=== PATIENT | male | born 1955 | race Two or more races ===

== ENCOUNTER 2024-01-03 09:02 | Outpatient (CLI) | payer OTHER ==
[~2024-01-03 09:02] MED LIST: CATAPRES0.3 MG; COZAAR25 MG; GLIPIZIDE XL2.5 MG; LOPRESSOR25 MG; ZOCOR20 MG
[2024-01-03 10:34] LABS: HEMATOCRIT 41.7 % (39.0-48.0); HEMOGLOBIN 13.8 g/dL (13-16.00); MEAN CELL VOLUME 82.4 fL (80.0-100.00); MEAN CORPUSCULAR HEMOGLOBIN 27.2 pg (27.00-32.0); RED BLOOD COUNT 5.05 M/uL (4.00-6.00); RED CELL DISTRIBUTION WIDTH 15.7 % (11.5-14.5)
[2024-01-03 10:52] LABS: PLATELET COUNT 110 K/uL (150-450)
[2024-01-03 10:59] LABS: INR 1.07; PARTIAL THROMBOPLASTIN TIME 27.6 SECONDS (22.0-34.0); PROTHROMBIN TIME 11.6 SECONDS (9.0-11.5)
[2024-01-03 11:10] LABS: % SATURACION 10.3 % (20-50); ALBUMIN 4.2 gm/dL (3.4-5.0); BILIRUBIN TOTAL 0.99 mg/dL (0.3-1.2); CALCIUM 9.2 mg/dL (8.5-10.1); CREATININE SERUM 1.28 mg/dL (0.70-1.30); FERRITIN 23.5 NG/ML (26-388); GFR 55.56; GLOBULINA 3.4 G/DL (2.4-3.5); POTASSIUM 4.13 mEq/L (3.5-5.1); TOTAL PROTEIN 7.6 gm/dL (6.4-8.2)
[2024-01-03 11:25] LABS: FOLIC ACID 15.46 ng/ml (4.78-20)
[2024-01-04 10:07] LABS: MANUAL PLATELET COUNT 198
[2024-01-04 10:08] LABS: PLATELET ESTIMATE NORMAL (NORMAL)
== END 2024-01-03 09:03 | disposition home or self-care (01) ==
LOC: LAB 09:02
PROVIDERS: ATTEND Internal Medicine Hematology & Oncology
DX: C18.9 Malignant neoplasm of colon, unspecified (principal); I10 Essential (primary) hypertension; E11.9 Type 2 diabetes mellitus without complications; G47.33 Obstructive sleep apnea (adult) (pediatric); R79.9 Abnormal finding of blood chemistry, unspecified; K76.89 Other specified diseases of liver; R74.02 Elevation of levels of lactic acid dehydrogenase [LDH]; D50.8 Other iron deficiency anemias; D68.8 Other specified coagulation defects; D69.1 Qualitative platelet defects

== ENCOUNTER 2024-05-09 11:15 | Inpatient (IN) | payer OTHER ==
[~2024-05-09] VITALS: Ht 162.6 cm; Wt 115.2 kg
[2024-05-16] MEDS ORDERED: METOLAZONE5 MG (11:46)
[2024-05-16] MEDS ORDERED: METOPROLOL SUC100 MG (11:46)
[2024-05-16] MEDS ORDERED: GABAPENTIN600 MG (11:46)
[2024-05-16] MEDS ORDERED: FLUTICASONE PRO12 GM (11:46)
[2024-05-16] MEDS ORDERED: AMLODIPINE BESYL5 MG (11:46)
[2024-05-16] MEDS ORDERED: DOXAZOSIN MESYLA2 MG (11:46)
[2024-05-16] MEDS ORDERED: CILOSTAZOL50 MG (11:46)
[2024-05-16] MEDS ORDERED: ENALAPRILAT DIHYDRATE 1.25 MG/ML VIAL IV ONE ×3 (11:53→19:16)
[2024-05-16] MEDS ORDERED: CHLORHEXIDINE GLUCONATE 120 ML BOTTLE TOP ONE (13:36)
[2024-05-16] MEDS ORDERED: MORPHINE SULFATE 4 MG/ML CARTRIDGE IV PRN (13:45)
[2024-05-16] MEDS ORDERED: ONDANSETRON HCL 2 MG/ML VIAL IV PRN (13:45)
[2024-05-16] MEDS ORDERED: OxyCODONE HCL 5 MG TABLET (ROXICODONE) PO PRN (13:45)
[2024-05-16] MEDS ORDERED: DEXTROSE 50 % IN WATER 0.5 G/ML DISP.SYRIN IV PRN (13:45)
[2024-05-16] MEDS ORDERED: 0.9 % SODIUM CHLORIDE 1,000 ML IV SCH (13:45)
[2024-05-16] MEDS ORDERED: CEFTRIAXONE SODIUM 2,000 MG VIAL ONE (13:49)
[2024-05-16] MEDS ORDERED: ACETAMINOPHEN 500 MG GEL..CAP PO SCH (14:00)
[2024-05-16] MEDS ORDERED: BUPIVACAINE HCL 30 ML VIAL IJ ONE (14:45)
[2024-05-16] MEDS ORDERED: LIDOCAINE HCL 1%/EPINEPHRINE 20ML VIAL IJ ONE (14:45)
[2024-05-16] MEDS ORDERED: METRONIDAZOLE/SODIUM CHLORIDE 5 MG/ML ML IV ONE (14:45)
[2024-05-16] MEDS ORDERED: POVIDONE-IODINE 118 ML BOTT TOP ONE (15:24)
[2024-05-16] MEDS ORDERED: SUGAMMADEX SODIUM 200 MG/2 ML VIAL IV ONE (15:54)
[2024-05-16] MEDS ORDERED: METRONIDAZOLE/SODIUM CHLORIDE 500 MG/100 ML PIGGYBACK IV SCH (17:00)
[2024-05-16] MEDS ORDERED: GABAPENTIN 300 MG CAPSULE PO SCH (17:00)
[2024-05-16] MEDS ORDERED: POLYETHYLENE GLYCOL 3350 17 GM BLIST.PACK PO SCH (17:00)
[2024-05-16] MEDS ORDERED: HYOSCYAMINE SULFATE 0.125 MG TAB.SUBL SL SCH (17:00)
[2024-05-16] MEDS ORDERED: METRONIDAZOLE/SODIUM CHLORIDE 500 MG/100 ML PIGGYBACK IV ONE (17:18)
[2024-05-16] MEDS ORDERED: MORPHINE SULFATE 4 MG/ML VIAL IV ONE ×2 (17:40→18:10)
[2024-05-16] MEDS ORDERED: LEVALBUTEROL HCL 0.63 MG/3 ML SOLUTION IH SCH (18:53)
[2024-05-16] MEDS ORDERED: INSULIN LISPRO 1,000 UNIT/10 ML UNITS SUBCUTANEO PRN (19:00)
[2024-05-16] MEDS ORDERED: ENALAPRILAT DIHYDRATE 1.25 MG/ML VIAL IV PRN (19:00)
[2024-05-16] MEDS ORDERED: DEXTROSE 50 % IN WATER 0.5 G/ML VIAL IV PRN (19:00)
[2024-05-16] MEDS ORDERED: ENALAPRILAT DIHYDRATE 2.5 MG/2 ML VIAL IV ONE (19:20)
[2024-05-16] MEDS ORDERED: LEVALBUTEROL HCL 0.63 MG/3 ML SOLUTION IH ONE (19:22)
[2024-05-16] MEDS ORDERED: hydrALAZINE HCL 20 MG VIAL ONE (19:46)
[2024-05-16] MEDS ORDERED: NITROGLYCERIN IN 5 % DEXTROSE 50 MG/250 ML BOTTLE IV ONE (19:47)
[2024-05-16] MEDS ORDERED: DOXAZOSIN MESYLATE 2 MG TABLET PO SCH (21:00)
[2024-05-16] MEDS ORDERED: MONTELUKAST SODIUM 10 MG TABLET PO SCH (21:00)
[2024-05-16] MEDS ORDERED: FAMOTIDINE/PF 20 MG/2 ML VIAL IV PUSH SCH (21:00)
[2024-05-16] MEDS ORDERED: CELECOXIB 200 MG CAPSULE PO SCH (21:00)
[2024-05-16] MEDS ORDERED: CLONIDINE HCL 0.1 MG TABLET PO SCH (21:00)
[2024-05-16 21:06] LABS: ABG PH 7.372 (7.35-7.45); ABG PO2 114.9 mmHg (80-100); ABG pCO2 53.8 mmHg (35-45); BASE EXCESS 3.9 mmol/l; BICARBONATE 30.5 mmol/l (23-25); SaO2 98.4 %; Tco2 32.2 mmol/l; allen test SATISFACTORY; puncture site RADIAL LEFT
[2024-05-16 21:07] LABS: o2 50 %
[2024-05-16] MEDS ORDERED: FAMOTIDINE/PF 20 MG/2 ML VIAL ONE (21:08)
[2024-05-16 21:19] LABS: HEMATOCRIT 39.8 % (39.0-48.0); HEMOGLOBIN 12.9 g/dL (13-16.00); MEAN CELL VOLUME 80.8 fL (80.0-100.00); MEAN CORPUSCULAR HEMOGLOBIN 26.2 pg (27.00-32.0); MEAN CORPUSCULAR HGB CONC 32.5 g/dl (32.0-36.0); PLATELET COUNT 143 K/uL (150-450); RED BLOOD COUNT 4.93 M/uL (4.00-6.00); RED CELL DISTRIBUTION WIDTH 16.4 % (11.5-14.5)
[2024-05-16 21:44] LABS: ALBUMIN 3.7 gm/dL (3.4-5.0); CREATININE SERUM 1.21 mg/dL (0.70-1.30); GFR 59.28; MAGNESIUM 1.7 mg/dL (1.8-2.4); PHOSPHOROUS 4.3 mg/dL (2.5-4.9); POTASSIUM 4.28 mEq/L (3.5-5.1)
[2024-05-17 00:39] VITALS: BP 149/75; O2SAT 95
[2024-05-17 06:47] LABS: HEMATOCRIT 38.5 % (39.0-48.0); MEAN CELL VOLUME 79.9 fL (80.0-100.00); MEAN CORPUSCULAR HEMOGLOBIN 26.9 pg (27.00-32.0); MEAN CORPUSCULAR HGB CONC 33.7 g/dl (32.0-36.0); PLATELET COUNT 153 K/uL (150-450); RED BLOOD COUNT 4.82 M/uL (4.00-6.00); RED CELL DISTRIBUTION WIDTH 16.4 % (11.5-14.5)
[2024-05-17 07:26] LABS: ALBUMIN 3.6 gm/dL (3.4-5.0); CREATININE SERUM 1.13 mg/dL (0.70-1.30); GFR 64.15; PHOSPHOROUS 3.8 mg/dL (2.5-4.9)
[2024-05-17 07:31] LABS: MAGNESIUM 1.8 mg/dL (1.8-2.4); POTASSIUM 4.61 mEq/L (3.5-5.1)
[2024-05-17 08:00] VITALS: BP 192/82; O2SAT 93
[2024-05-17] MEDS ORDERED: METOPROLOL SUCCINATE 100 MG TAB.SR.24H PO SCH (09:00)
[2024-05-17] MEDS ORDERED: LOSARTAN POTASSIUM 100 MG TABLET PO SCH (09:00)
[2024-05-17 16:31] VITALS: BP 180/100
[2024-05-17] MEDS ORDERED: SIMVASTATIN 20 MG TABLET PO SCH (17:00)
[2024-05-17] MEDS ORDERED: ENOXAPARIN SODIUM 40 MG/0.4 ML SYRINGE SUBCUTANEO SCH (17:00)
[2024-05-17 19:35] VITALS: BP 111/79
[2024-05-17 21:30] LABS: HEMATOCRIT 37.5 % (39.0-48.0); HEMOGLOBIN 12.6 g/dL (13-16.00); MEAN CORPUSCULAR HEMOGLOBIN 29.2 pg (27.00-32.0); MEAN CORPUSCULAR HGB CONC 33.6 g/dl (32.0-36.0); PLATELET COUNT 276 K/uL (150-450); RED BLOOD COUNT 4.31 M/uL (4.00-6.00); RED CELL DISTRIBUTION WIDTH 17.3 % (11.5-14.5)
[2024-05-18 01:00] VITALS: BP 143/68; O2SAT 97
[2024-05-18] MEDS ORDERED: ENOXAPARIN SODIUM 40 MG/0.4 ML SYRINGE SUBCUTANEO SCH (09:00)
[2024-05-18] MEDS ORDERED: INSULIN LISPRO 1,000 UNIT/10 ML UNITS SUBCUTANEO PRN (10:45)
[2024-05-18] MEDS ORDERED: DEXTROSE 50 % IN WATER 0.5 G/ML DISP.SYRIN IV PRN (10:45)
[2024-05-18] MEDS ORDERED: INTESTINEX680 M1 PO (11:44)
[2024-05-18] MEDS ORDERED: HYOSCYAMINE0.125 M1 SL (11:45)
== END 2024-05-18 13:08 | disposition home or self-care (01) | DRG 336 ==
LOC: SURH 05-16 07:00 → O/R 05-16 10:15 → SURH 05-16 10:15
PROVIDERS: Internal Medicine Geriatric Medicine; ADMIT Surgery; ATTEND Surgery
PROC: 0DTJ4ZZ Resection of Appendix, Percutaneous Endoscopic Approach (ICD-10-PCS; 2024-05-16)
PROC: 0DBW4ZX Excision of Peritoneum, Percutaneous Endoscopic Approach, Diagnostic (ICD-10-PCS; 2024-05-16)
PROC: 0DN84ZZ Release Small Intestine, Percutaneous Endoscopic Approach (ICD-10-PCS; principal; 2024-05-16 07:00)
DX: C20 Malignant neoplasm of rectum (principal); K63.2 Fistula of intestine

== ENCOUNTER 2024-09-02 07:35 | Outpatient (CLI) | payer OTHER ==
[~2024-09-02 07:35] MED LIST changes: +AMLODIPINE BESYL5 MG; +CILOSTAZOL50 MG; +DOXAZOSIN MESYLA2 MG; +FLUTICASONE PRO12 GM; +GABAPENTIN600 MG; +HYOSCYAMINE0.125 M1 SL; +INTESTINEX680 M1 PO; +METOLAZONE5 MG; +METOPROLOL SUC100 MG
== END 2024-09-02 07:41 | disposition home or self-care (01) ==
LOC: TOM 07:35
PROVIDERS: ATTEND Surgery
DX: C20 Malignant neoplasm of rectum (principal); K63.2 Fistula of intestine; Z93.3 Colostomy status; D12.6 Benign neoplasm of colon, unspecified

== ENCOUNTER 2025-03-17 07:00 | Inpatient (IN) | payer OTHER ==
[~2025-03-17] VITALS: Ht 162.6 cm; Wt 115.7 kg
[2025-03-17] MEDS ORDERED: CEFTRIAXONE SODIUM 2,000 MG VIAL ONE (07:17)
[2025-03-17] MEDS ORDERED: METRONIDAZOLE/SODIUM CHLORIDE 500 MG/100 ML PIGGYBACK IV ONE (07:17)
[2025-03-17] MEDS ORDERED: POVIDONE-IODINE 118 ML BOTT TOP ONE ×2 (08:16→09:10)
[2025-03-17] MEDS ORDERED: HEMOSTATIC MATRIX 1 KIT KIT TOP ONE (08:16)
[2025-03-17] MEDS ORDERED: DIBUCAINE 30 GM TUBE ONE (08:16)
[2025-03-17] MEDS ORDERED: PERCOCET 5-3251 EACH PO (09:42)
[2025-03-17] MEDS ORDERED: DESITIN57 G1 TOP (09:42)
[2025-03-17] MEDS ORDERED: LEVOFLOXACIN500 MG PO (10:01)
[2025-03-17] MEDS ORDERED: LABETALOL HCL 100 MG/20 ML ML ONE ×2 (17:36→18:52)
[2025-03-17] MEDS ORDERED: ENALAPRILAT DIHYDRATE 1.25 MG/ML VIAL IV ONE (18:15)
[2025-03-17] MEDS ORDERED: LABETALOL HCL 100 MG/20 ML ML IV ONE (18:15)
[2025-03-17] MEDS ORDERED: LABETALOL HCL 20MG/4ML SYRINGE IV ONE (18:30)
[2025-03-17] MEDS ORDERED: SODIUM CHLORIDE 0.45 % 1,000 ML IV SCH (19:45)
[2025-03-17] MEDS ORDERED: ONDANSETRON HCL 2 MG/ML VIAL IV PRN (20:00)
[2025-03-17] MEDS ORDERED: MORPHINE SULFATE 4 MG/ML VIAL IV PRN (20:00)
[2025-03-17] MEDS ORDERED: DEXTROSE 50 % IN WATER 0.5 G/ML DISP.SYRIN IV PRN (20:00)
[2025-03-17] MEDS ORDERED: CLEVIDIPINE BUTYRATE 100 ML IV SCH (20:00)
[2025-03-17] MEDS ORDERED: INSULIN LISPRO 1,000 UNIT/10 ML UNITS SUBCUTANEO PRN (20:00)
[2025-03-17] MEDS ORDERED: LEVALBUTEROL HCL 0.63 MG/3 ML SOLUTION IH SCH (20:09)
[2025-03-17 20:50] LABS: BASO % 0.6 % (0.1-1.2); EOS # 0.32 (0.04-0.54); EOS % 2.9 % (0.7-7.0); LYMPH # 0.76 (1.18-3.74); LYMPH % 7.0 % (19.3-53.1); MEAN PLATELET VOLUME 11.70 fl (9.4-12.4); MONO # 0.63 (0.24-0.82); MONO % 5.8 % (4.7-12.5); NEUT # 9.08 (1.56-6.13); NEUT % 83.4 % (34.0-71.1); RED CELL DISTRIBUTION WIDTH 14.8 % (11.6-14.4)
[2025-03-17] MEDS ORDERED: MONTELUKAST SODIUM 10 MG TABLET PO SCH (21:00)
[2025-03-17] MEDS ORDERED: DOXAZOSIN MESYLATE 2 MG TABLET PO SCH (21:00)
[2025-03-17] MEDS ORDERED: FAMOTIDINE/PF 20 MG/2 ML VIAL IV SCH (21:00)
[2025-03-17] MEDS ORDERED: CLONIDINE HCL 0.1 MG TABLET PO SCH (21:00)
[2025-03-17 21:25] LABS: BUN CREA RATIO 18.0 (7.0-25.0); CREATININE SERUM 1.05 mg/dL (0.70-1.30); GFR 69.63; GLUCOSE FASTING 141.0 mg/dL (65-100); OSMOLALITY SERUM 284.0 MOSM/KG (275-295)
[2025-03-17] MEDS ORDERED: FAMOTIDINE/PF 20 MG/2 ML VIAL ONE (22:09)
[2025-03-18] VITALS (13 sets, daily range): BP systolic 125–158; BP diastolic 52–88; O2SAT 98–100
[2025-03-18 08:14] LABS: ALT/SGPT 32.0 U/L (12-78); AST/SGOT 21.0 U/L (15-37); BILIRUBIN TOTAL 2.39 mg/dL (0.3-1.2); BUN CREA RATIO 20.0 (7.0-25.0); CREATININE SERUM 1.47 mg/dL (0.70-1.30); GFR 47.22; GLOBULINA 3.3 G/DL (2.4-3.5); GLUCOSE FASTING 189.0 mg/dL (65-100); OSMOLALITY SERUM 287.0 MOSM/KG (275-295); TSH 0.93 uIU/mL (0.358-3.74)
[2025-03-18] MEDS ORDERED: METOPROLOL SUCCINATE 100 MG TAB.SR.24H PO SCH (09:00)
[2025-03-18] MEDS ORDERED: LOSARTAN POTASSIUM 100 MG TABLET PO SCH (09:00)
[2025-03-18] MEDS ORDERED: ENALAPRILAT DIHYDRATE 1.25 MG/ML VIAL IV PRN (14:30)
[2025-03-18] MEDS ORDERED: hydrALAZINE HCL 20 MG VIAL IV PRN (14:30)
[2025-03-18] MEDS ORDERED: SIMVASTATIN 20 MG TABLET PO SCH (17:00)
[2025-03-19 04:00] VITALS: BP 159/79; O2SAT 100
[2025-03-19 07:17] VITALS: BP 184/82; O2SAT 100
[2025-03-19 07:22] LABS: BASO % 0.4 % (0.1-1.2); EOS # 0.31 (0.04-0.54); EOS % 3.3 % (0.7-7.0); LYMPH # 1.06 (1.18-3.74); LYMPH % 11.3 % (19.3-53.1); MEAN PLATELET VOLUME 12.90 fl (9.4-12.4); MONO # 0.87 (0.24-0.82); MONO % 9.2 % (4.7-12.5); NEUT # 7.10 (1.56-6.13); NEUT % 75.5 % (34.0-71.1); RED CELL DISTRIBUTION WIDTH 14.7 % (11.6-14.4)
[2025-03-19 08:03] LABS: BUN CREA RATIO 19.0 (7.0-25.0); CREATININE SERUM 1.2 mg/dL (0.70-1.30); GFR 59.68; GLUCOSE FASTING 144.0 mg/dL (65-100); OSMOLALITY SERUM 287.0 MOSM/KG (275-295)
[2025-03-19] MEDS ORDERED: TRAMADOL HCL 50 MG TABLET PO PRN (09:00)
[2025-03-19 12:00] VITALS: BP 171/79; O2SAT 100
[2025-03-19] MEDS ORDERED: LEVALBUTEROL HCL 0.63 MG/3 ML SOLUTION IH SCH (13:00)
[2025-03-19 16:06] VITALS: BP 191/90; O2SAT 100
[2025-03-19 20:00] VITALS: BP 177/72; O2SAT 100
[2025-03-19 23:20] VITALS: BP 185/77; O2SAT 100
[2025-03-20 04:17] VITALS: BP 155/76; O2SAT 100
[2025-03-20 07:00] VITALS: BP 169/72; O2SAT 100
[2025-03-20] MEDS ORDERED: CLONIDINE HCL 0.1 MG TABLET PO SCH (09:00)
[2025-03-20 12:00] VITALS: BP 179/81; O2SAT 100
[2025-03-20 15:26] VITALS: BP 163/62; O2SAT 100
[2025-03-20 18:52] VITALS: BP 186/74; O2SAT 98
[2025-03-21 01:09] VITALS: BP 176/74; O2SAT 99
[2025-03-21 06:33] VITALS: BP 188/77
[2025-03-21 08:00] VITALS: BP 160/82; O2SAT 100
[2025-03-21] MEDS ORDERED: NIFEDIPINE 30 MG TAB.SA.OSM PO SCH (09:00)
[2025-03-21] MEDS ORDERED: HYDROCHLOROTHIAZIDE 12.5 MG CAPSULE PO SCH (09:00)
[2025-03-21] MEDS ORDERED: TRAMADOL HCL 50 MG TABLET PO STA (09:14)
[2025-03-21] MEDS ORDERED: TRAMADOL HCL 50 MG TABLET PO PRN (09:15)
[2025-03-21 16:21] VITALS: BP 182/78; O2SAT 100
[2025-03-21] MEDS ORDERED: ENOXAPARIN SODIUM 40 MG/0.4 ML SYRINGE SUBCUTANEO SCH (17:00)
[2025-03-21] MEDS ORDERED: LEVALBUTEROL HCL 0.63 MG/3 ML SOLUTION IH SCH (17:00)
[2025-03-22] VITALS: BP 186/80; O2SAT 99
[2025-03-22 08:00] VITALS: BP 170/75; O2SAT 99
[2025-03-22 18:17] VITALS: BP 163/66; O2SAT 100
[2025-03-23 00:21] VITALS: BP 160/75; O2SAT 100
[2025-03-23 08:00] VITALS: BP 173/67; O2SAT 92
== END 2025-03-23 14:31 | disposition home or self-care (01) | DRG 357 ==
LOC: CIR.AMB 07:00 → ICU 19:51 → SURH 03-20 18:36
PROVIDERS: Internal Medicine Geriatric Medicine; ADMIT Surgery; ATTEND Surgery
PROC: 0JBB0ZZ Excision of Perineum Subcutaneous Tissue and Fascia, Open Approach (ICD-10-PCS; principal; 2025-03-17 10:15)
PROC: B246ZZZ Ultrasonography of Right and Left Heart (ICD-10-PCS; 2025-03-18)
PROC: 3E0F7GC Introduction of Other Therapeutic Substance into Respiratory Tract, Via Natural or Artificial Opening (ICD-10-PCS; 2025-03-18)
PROC: 4A12X4Z Monitoring of Cardiac Electrical Activity, External Approach (ICD-10-PCS; 2025-03-20)
DX: K60.40 Rectal fistula, unspecified (principal); I16.9 Hypertensive crisis, unspecified; I10 Essential (primary) hypertension; J45.909 Unspecified asthma, uncomplicated; E10.9 Type 1 diabetes mellitus without complications; E78.5 Hyperlipidemia, unspecified